=== PATIENT | female | born 1960 | race Caucasian/White ===

== ENCOUNTER → 2023-07-24 12:28 | Outpatient (CLI) | payer OTHER, SELFPAY ==
--- NOTE | ~2023-07-24 | XR_ITS ---
EXAMINATION: XR foot RT min 3V DATE: 07/24/2023 13:07 INDICATION: Right foot pain. TECHNIQUE: 4 views of right foot were obtained. COMPARISON: None. FINDINGS: Bone alignment is normal. No fracture. There is mild osteoarthritis of first metatarsophala ngeal joint and some of the midfoot joints. There are enthesophytes at the posterior and plantar aspe cts of calcaneal tuberosity. IMPRESSION: 1. Mild polyarticular osteoarthritis. Reviewed, dictated and finalized at location E.
== END ==
PROVIDERS: PCP Nurse Practitioner Family; Visit Provider Nurse Practitioner Family
DX: M19.071 Primary osteoarthritis, right ankle and foot (principal); Z68.26 Body mass index [BMI] 26.0-26.9, adult
CPT/HCPCS: 73630

== ENCOUNTER 2025-01-10 07:48 | Outpatient (CLI) | payer OTHER, SELFPAY ==
--- NOTE | ~2025-01-10 | XR_ITS ---
XR hand LT 2V 01/10/2025 08:30 Indication: Left hand pain Procedure: 2 views left hand Comparison: No prior studies for comparison. Findings: Moderate polyarticular osteoarthritis, most severe at the third MCP joint. Osteopenia. No f racture or traumatic malalignment. No foreign bodies. Impression: 1: Moderate polyarticular osteoarthritis. Reviewed, dictated and finalized at location B. Impression: 1: Moderate polyarticular osteoarthritis.
--- NOTE | ~2025-01-10 | XR_ITS ---
XR hand RT 2V 01/10/2025 08:30 Indication: Right hand and joint pain Procedure: 2 views right hand Comparison: No prior studies for comparison. Findings: There is moderate polyarticular osteoarthritis. No erosive changes. No fracture or traumati c malalignment. No soft tissue abnormality. Osteopenia. Impression: 1: Moderate polyarticular osteoarthritis, most advanced at the third MCP joint. Reviewed, dictated and finalized at location B. Impression: 1: Moderate polyarticular osteoarthritis, most advanced at the third MCP joint.
== END 2025-01-10 07:49 | disposition home or self-care (01) ==
LOC: MICIMG 07:57
PROVIDERS: PCP Nurse Practitioner Family; Visit Provider Student in an Organized Health Care Education/Training Program
DX: M25.541 Pain in joints of right hand (principal); M25.542 Pain in joints of left hand
CPT/HCPCS: 73120